=== PATIENT | male | born 1970 | race Caucasian/White ===

== ENCOUNTER 2020-06-05 09:51 | Outpatient (NON) | payer OTHER, SELFPAY ==
[2020-06-06 19:25] LABS: SARS-CoV-2 RNA PCR Positive
== END 2020-06-05 09:52 ==
PROVIDERS: Visit Provider Internal Medicine
DX: U07.1 COVID-19 (principal)
CPT/HCPCS: 87635; C9803; U0003

== ENCOUNTER 2021-07-28 00:02 | Day surgery (SDC) | payer OTHER, SELFPAY ==
[2021-07-16 09:24] VITALS: BMI 27.4
[2021-07-28 06:45] VITALS: BP 128/90; PULSE 51; RESP 18; TEMP 36.1; O2SAT 99
[2021-07-28] MEDS: LACTATED RINGERS 1,000 ML 150 ML IV CONT (06:50)
--- NOTE | 2021-07-28 07:25 | WPDGICN ---
Assessment and Plan Assessment and plan (1) Encounter for screening colonoscopy: Code(s): Z12.11 - Encounter for screening for malignant neoplasm of colon Status: Acute GI Consult Note Consult date/time: 07/28/21 07:25 HPI: Justin Soliz is a 51 year old male Presents for screening colonoscopy. Patient's current weight appetite bowel movements are normal. He denies abdominal pain. He has had no bleeding. Family history is noncontributory. Patient presents today for neoplasia screening. Review of Systems Review of Systems: All systems reviewed & are unremarkable except as noted in HPI and below PMFSH Social History Social History Smoking status: Never smoker Alcohol intake: never Substance use: never Substance use type: does not use Living arrangements: with family Spiritual care concerns: No Meds Home Medications and Allergies Home Medications Medication Instructions Recorded Confirmed Type No Home Medications 07/16/21 07/16/21 History Allergies Allergy/AdvReac Type Severity Reaction Status Date / Time No Known Allergies Allergy Verified 07/28/21 06:43 Vital Signs Vital Signs - 24 hr 07/28/21 06:45 Temperature 97.0 F L Pulse Rate 51 L Respiratory Rate 18 Blood Pressure 128/90 Pulse Oximetry 99 Exam Narrative: Physical exam reveals patient be alert. Vital signs stable. HEENT exam is unremarkable. Patient is anicteric. Lungs are clear to auscultation and percussion. Heart is without murmur or extra sounds. Abdominal exam bowel sounds are present soft nontender with no organomegaly. Digital external rectal exam is normal.
--- NOTE | 2021-07-28 07:44 | WPDANESEPPF ---
Anes - Initial Pre Proc Eval Procedure: Operation Date: 07/28/21 08:00 Proposed Procedures p Screening Colonoscopy - Orlin Michael MD Date/Time: 07/28/21 07:44 Surgeon: Orlin Michael MD Pre Op Diagnosis: neoplasm screening Patient Data Age: 51 Gender: M Height: 1.73 m Weight: 83 kg Last Vital Signs Temp 36.1 C L 07/28/21 06:45 Pulse 51 L 07/28/21 06:45 Resp 18 07/28/21 06:45 BP 128/90 07/28/21 06:45 Pulse Ox 99 07/28/21 06:45 Allergies Allergy/AdvReac Type Severity Reaction Status Date / Time No Known Allergies Allergy Verified 07/28/21 06:43 Home Medications Medication Instructions Recorded Confirmed Type No Home Medications 07/16/21 07/16/21 History Patient hx anesthesia problems: none Family hx anesthesia problems: none Results Review: All pre-operative results and documents have been reviewed as part of the pre-operative evaluation. PMFSH Past Medical History Medical History (Updated 07/28/21 @ 07:44 by Boris Etienne MD) Overweight Surgical History Surgical History (Updated 07/28/21 @ 07:46 by Boris Etienne MD) H/O sinus surgery Hx of chest tube placement Social History Social History Smoking status: Never smoker Alcohol intake: never Substance use: never Substance use type: does not use Living arrangements: with family Spiritual care concerns: No Anes - Eval Final PreProcedure Day of Procedure 07/28/21 07:44 Patient weight: overweight Heart: regular rate and rhythm Lungs: clear to auscultation Airway: Mallampati scale class II Neurological: alert and oriented Last oral intake: >/= 8 hours ASA classification: II Emergent: no Anesthetic plan: proceed Anesthesia type and monitoring: general GIVS and standard monitoring Results Review: All pre-operative results and documents have been reviewed as part of the pre-operative evaluation. Informed Consent: The patient's anesthetic plan and its attendant risks and benefits were discussed with the patient/family/POA. Questions were solicited and answers provided to the satisfaction of the patient/family/POA.
[2021-07-28] MEDS: SIMETHICONE ORAL SUSPENSION 20 MG/0.3 ML 30 ML BOTTLE 0.6 ML IRRIGATION (08:03)
[2021-07-28 08:15] VITALS: BP 103/65; PULSE 61; RESP 21; O2SAT 97
[2021-07-28 08:25] VITALS: BP 107/68; PULSE 52; RESP 20; O2SAT 100
[2021-07-28 08:35] VITALS: BP 119/83; PULSE 47; RESP 12; O2SAT 100
== END 2021-07-28 08:45 | disposition home or self-care (01) ==
PROVIDERS: PCP Internal Medicine; Visit Provider Internal Medicine Gastroenterology
PROC: 0DJD8ZZ Inspection of Lower Intestinal Tract, Via Natural or Artificial Opening Endoscopic (ICD-10-PCS; CPT 45378; principal; 2021-07-28 08:00)
DX: Z12.11 Encounter for screening for malignant neoplasm of colon (principal)
CPT/HCPCS: 45378; J2704; J7120